=== PATIENT | female | born 1995 | race Caucasian/White ===

== ENCOUNTER → 2020-07-19 15:25 | Outpatient (CLI) | payer OTHER, SELFPAY ==
[2020-07-07 08:20] VITALS: BMI 20.4
--- NOTE | 2020-07-19 15:40 | MRI_ITS ---
HISTORY: Migrating headaches for 12-15 years. Increase in severity and frequency. No comparison imaging of any kind. TECHNIQUE: Routine brain MR protocol was performed without and with gadolinium. 12 mL of Dotarem intravenously was administered. COMPARISON: None FINDINGS: # of images incl. paperwork: 335 Brain volume is normal. No acute stroke is present. Paranasal sinuses are clear. There are no masses, herniations, nor deviations. Orbits and globes are normal. The pituitary and sella turcica are not enlarged. Flow is present within major central intracranial arteries. Post gadolinium images fail to demonstrate any enhancing lesions within the brain MRI/Brain W/WO Contrast IMPRESSION: Normal. at 0428 Reported and signed by: Yoni Mclean MD Electronically Signed: Yoni Mclean MD at 4:27 EST Tel , Service support ,
== END ==
PROVIDERS: PCP Nurse Practitioner Primary Care; Referring Provider Psychiatry & Neurology Neurology; Visit Provider Psychiatry & Neurology Neurology
DX: G43.909 Migraine, unspecified, not intractable, without status migrainosus (principal)
CPT/HCPCS: 70553; A9575

== ENCOUNTER → 2021-07-20 10:01 | Outpatient (CLI) | payer BC, SELFPAY ==
--- NOTE | 2021-07-20 10:04 | VDLE_ITS ---
Reason For Study: Right leg pain RIGHT CFV is compressible, spontaneous, phasic, competent and demonstrates normal augmentation. FV is compressible, spontaneous, phasic, competent and demonstrates normal augmentation. POP V is compressible, spontaneous, phasic, competent and demonstrates normal augmentation. T/P Trunk is compressible. PTV is compressible. RT PerV is compressible. SFJ is competent and measures .6 cm. GSV proximal thigh measures .17 x .21 cm. GSV at knee measures .21 x .23 cm. GSV above knee is competent. GSV below knee is INCOMPETENT for greater than 0.5 seconds. SSV proximal calf is INCOMPETENT for greater than 0.5 seconds and measures .24 x .27 cm. Procedure This is a venous duplex using B-mode, color flow and spectral Doppler. Exam performed in department. The exam was diagnostic. A preliminary report was called and/or faxed to Dr. Snow. VL/Venous Duplex US, Unilateral Interpretation Summary Deep veins of the right lower extremity are patent and compressible segmentally . There is no evidence of right lower extremity deep vein thrombosis. Valvular competence lindsey ears intact within the proximal deep venous system on the right . The right great saphenous vein a ppears patent and compressible segmentally. The right sapheno-femoral junction is competent . The right great saphenous vein appears competent above the knee. The right great saphenous vein appears incompetent below the knee. The right small saphenous vein is patent and incompetent. Ordering Physician: Stefan Snow Performed By: Michele Martinez RVT
== END ==
PROVIDERS: PCP Nurse Practitioner Primary Care; Referring Provider Surgery; Visit Provider Surgery
DX: M79.604 Pain in right leg (principal)
CPT/HCPCS: 93971

== ENCOUNTER → 2022-06-22 | Outpatient (CLI) | payer BC, SELFPAY ==
[2022-06-29 15:21] LABS: HPV Reflexed? NOT INDICATED
== END | disposition home or self-care (01) ==
LOC: LABSPEC 11:02
PROVIDERS: PCP Nurse Practitioner Primary Care; Visit Provider Student in an Organized Health Care Education/Training Program
DX: Z12.4 Encounter for screening for malignant neoplasm of cervix (principal)
CPT/HCPCS: 88175; G0145